=== PATIENT | female | born 2000 | race Caucasian/White ===

== ENCOUNTER 2019-01-11 12:39 | Emergency (ER) | payer MEDICAID ==
[~2019-01-11] VITALS: Ht 162.6 cm; Wt 70.5 kg
[2019-01-11] MEDS ORDERED: PERM60CR19 TP (14:15)
[2019-01-11 14:28] VITALS: BP 140/95
== END 2019-01-11 14:30 | disposition home or self-care (01) ==
LOC: ER 12:42
DX: B86 Scabies (principal); Z91.018 Allergy to other foods; Z79.899 Other long term (current) drug therapy
CPT/HCPCS: 99282; 99283